=== PATIENT | male | born 2000 | race Caucasian/White ===

== ENCOUNTER 2023-10-02 01:49 | Emergency (ER) | payer BC ==
[~2023-10-02] VITALS: Ht 177.8 cm; Wt 81.8 kg
[2023-10-02 01:50] VITALS: BP 137/93
[2023-10-02] MEDS ORDERED: AMOXICILLIN 8751 TAB PO ×3 (03:04→11:44)
[2023-10-02 03:13] VITALS: PULSE 112
== END 2023-10-02 03:14 | disposition home or self-care (01) ==
LOC: COL.ER 01:49
DX: S02.2XXA Fracture of nasal bones, initial encounter for closed fracture (principal); S01.511A Laceration without foreign body of lip, initial encounter; Z87.891 Personal history of nicotine dependence; W03.XXXA Other fall on same level due to collision with another person, initial encounter; Y92.59 Other trade areas as the place of occurrence of the external cause